=== PATIENT | female | born 1955 | race Caucasian/White ===

== ENCOUNTER 2020-10-07 10:45 | Outpatient (REF) | payer MEDICAID, SELFPAY ==
--- NOTE | ~2020-10-07 | MM_ITS ---
EXAMINATION: MM SCREENING DIGITAL BREAST TOMOSYNTHESIS, BILATERAL CLINICAL INFORMATION: Screening. Asymptomatic. The lifetime risk of breast cancer based on the Tyrer-Cuzick Model is 5%. COMPARISON: Mammography: 10/02/2019, 09/26/2018, 08/30/2017 TECHNIQUE: Digital breast tomosynthesis is performed in both the craniocaudal and mediolateral oblique views along with computer-aided detection (CAD). Synthesized 2D images are generated from the tomosynthesis. FINDINGS: There are scattered areas of fibroglandular density (ACR BI-RADS breast composition Category b). There are no significant masses, abnormal calcifications, or other abnormalities. No significant changes from prior studies. MM/MM tomosynthesis screening BI IMPRESSION: No mammographic evidence of malignancy. ASSESSMENT: BI-RADS 1: Negative RECOMMENDATION: Routine annual mammography screening. This patient's information was entered into a reminder system with a target due date for their next mammogram.
== END 2020-10-07 10:46 | disposition home or self-care (01) ==
LOC: HO.MAMMO 10:45
PROVIDERS: PCP Internal Medicine; Visit Provider Internal Medicine
DX: Z12.31 Encounter for screening mammogram for malignant neoplasm of breast (principal)
CPT/HCPCS: 77063; 77067

== ENCOUNTER 2021-10-20 08:55 | Outpatient (REF) | payer MEDICAID, SELFPAY ==
--- NOTE | ~2021-10-20 | MM_ITS ---
EXAMINATION: MM SCREENING DIGITAL BREAST TOMOSYNTHESIS, BILATERAL CLINICAL INFORMATION: Screening. Asymptomatic. The lifetime risk of breast cancer based on the Tyrer-Cuzick Model is 5%. COMPARISON: Mammography: 10/07/2020, 10/02/2019, 09/26/2018 TECHNIQUE: Digital breast tomosynthesis is performed in both the craniocaudal and mediolateral oblique views along with computer-aided detection (CAD). Synthesized 2D images are generated from the tomosynthesis. FINDINGS: There are scattered areas of fibroglandular density (ACR BI-RADS breast composition Category b). There are no significant masses, abnormal calcifications, or other abnormalities. Parenchymal pattern is similar to prior studies. There are no significant changes. MM/MM tomosynthesis screening BI IMPRESSION: No mammographic evidence of malignancy. ASSESSMENT: BI-RADS 1: Negative RECOMMENDATION: Routine annual mammography screening. This patient's information was entered into a reminder system with a target due date for their next mammogram.
== END 2021-10-20 08:56 | disposition home or self-care (01) ==
LOC: HO.MAMMO 08:55
PROVIDERS: PCP Internal Medicine; Visit Provider Internal Medicine
DX: Z12.31 Encounter for screening mammogram for malignant neoplasm of breast (principal)
CPT/HCPCS: 77063; 77067

== ENCOUNTER 2022-01-26 09:26 | Outpatient (REF) | payer MEDICAID, SELFPAY ==
--- NOTE | ~2022-01-26 | XR_ITS ---
EXAMINATION: XR HIP, RIGHT CLINICAL INFORMATION: Pain COMPARISON: None TECHNIQUE: Two views of the right hip. FINDINGS: Bones and soft tissues are normal. No fracture. Alignment is anatomic. Hip joint space is maintained. XR/XR hip RT min 2V IMPRESSION: Normal right hip.
--- NOTE | ~2022-01-26 | XR_ITS ---
EXAMINATION: XR LUMBOSACRAL SPINE CLINICAL INFORMATION: Low back pain COMPARISON: Previous CT of the abdomen and pelvis June 2014 TECHNIQUE: Three views of the lumbosacral spine. FINDINGS: There may be a transitional vertebral body segment or sacralization of L5. Bone alignment is normal. No fracture or dislocation is seen. Disc spaces are normal. There are calcifications projecting over the left kidney. Previous CT shows left nephrectomy and left-sided abdominal calcifications are new. XR/XR lumbar spine 2-3V IMPRESSION: Probable transitional vertebral body segment or sacralization of L5. Otherwise unremarkable exam. Soft tissue calcifications projecting over the left renal fossa. Patient is post left nephrectomy. Calcifications appear new from June 2014 CT of the abdomen and pelvis..
== END 2022-01-26 09:27 | disposition home or self-care (01) ==
LOC: HO.XRAY 09:26
PROVIDERS: PCP Internal Medicine; Visit Provider Internal Medicine
DX: M25.551 Pain in right hip (principal); M54.41 Lumbago with sciatica, right side
CPT/HCPCS: 72100; 73502

== ENCOUNTER 2022-11-02 13:27 | Outpatient (REF) | payer MEDICAID, SELFPAY ==
--- NOTE | ~2022-11-02 | MM_ITS ---
EXAMINATION: MM SCREENING DIGITAL BREAST TOMOSYNTHESIS, BILATERAL CLINICAL INFORMATION: Screening. Asymptomatic. The lifetime risk of breast cancer based on the Tyrer-Cuzick Model is 5%. COMPARISON: Mammography: 10/20/2021, 10/07/2020, 10/02/2019, 09/26/2018 TECHNIQUE: Digital breast tomosynthesis is performed in both the craniocaudal and mediolateral oblique views along with computer-aided detection (CAD). Synthesized 2D images are generated from the tomosynthesis. FINDINGS: There are scattered areas of fibroglandular density (ACR BI-RADS breast composition Category b). There are no significant masses, abnormal calcifications, or other abnormalities. No architectural abnormality or developing density or significant change from prior studies. MM/MM tomosynthesis screening BI IMPRESSION: No significant changes from prior studies. ASSESSMENT: BI-RADS 1: Negative RECOMMENDATION: Routine annual mammography screening. This patient's information was entered into a reminder system with a target due date for their next mammogram.
== END 2022-11-02 13:28 | disposition home or self-care (01) ==
LOC: HO.MAMMO 13:27
PROVIDERS: PCP Internal Medicine; Visit Provider Internal Medicine
DX: Z12.31 Encounter for screening mammogram for malignant neoplasm of breast (principal)
CPT/HCPCS: 77063; 77067

== ENCOUNTER 2023-06-28 08:05 | Outpatient (REF) | payer MEDICAID, SELFPAY ==
[2023-06-28 14:38] LABS: Anion Gap 12 (12-20); Blood Urea Nitrogen 20 mg/dL (9-16); Calcium 9.1 mg/dL (8.4-10.2); Carbon Dioxide 27 mmol/L (22-29); Chloride 103 mmol/L (96-108); Estimated Glomerular Filt Rate > 60; Glucose Fasting 88 mg/dL (60-99); Potassium 4.1 mmol/L (3.3-5.1); Sodium 138 mmol/L (135-145)
== END 2023-06-28 08:06 | disposition home or self-care (01) ==
LOC: HO.CHCLDS 08:05
PROVIDERS: Visit Provider Internal Medicine
DX: I10 Essential (primary) hypertension (principal)
CPT/HCPCS: 36415; 80048

== ENCOUNTER 2024-01-06 12:14 | Outpatient (REF) | payer MEDICAID, SELFPAY ==
[2024-01-06 14:40] LABS: Anion Gap 15 (12-20); Blood Urea Nitrogen 16 mg/dL (9-16); Calcium 9.6 mg/dL (8.4-10.2); Carbon Dioxide 28 mmol/L (22-29); Chloride 103 mmol/L (96-108); Estimated Glomerular Filt Rate > 60; Glucose Random 87 mg/dL (60-115); Potassium 3.6 mmol/L (3.3-5.1); Sodium 142 mmol/L (135-145)
== END 2024-01-06 12:15 | disposition home or self-care (01) ==
LOC: HO.CHCLDS 12:14
PROVIDERS: Visit Provider Internal Medicine
DX: I10 Essential (primary) hypertension (principal)
CPT/HCPCS: 36415; 80048

== ENCOUNTER 2025-04-25 11:22 | Outpatient (REF) | payer MEDICAID, SELFPAY ==
--- OUTSIDE RECORDS SUMMARY | 2025-04-25 10:00 | XMS_ITS | Encounter Summary ---
Author Organization [employer] Address [address] [place] [id number] Care Team Providers Care Car Coupler Name Role Phone Saroj Hodgson MD Primary Care Provider [phone] Reason for Referral * Imaging (Routine) - Authorized Specialty Diagnoses / Procedures Referred By Contac t Referred To Contact Radiology Diagnoses Encounter for screening mammogram for malignant neoplasm of breast Procedures BI Mammogram Screening Tomosynthesis Bilateral Saroj Hodgson MD [address] [place] [address] Phone: tel: fax: [address] Phone: tel: fax: Referral ID Status Reason Start Date Expiration Date V isits Requested Visits Authorized [id number] Authorized 04/25/2025 04/25/2026 1 1 Reason for Visit * Reason Comments Extended office visit Encounter Details Date Type Department Care Team (Latest Contact Info) Description 04/25/2025 10:00 AM EDT Office Visit [facility] [address] [place] [address] Saroj Hodgson MD [address] [place] [address] Class 1 obesity due to excess calories with serious comorbidity and body mass index (BMI) of 33.0 to 33.9 in adult (Primary Dx); Primary hypertension; Primary osteoarthritis of right knee; Moderate asthma without complication, unspecified whether persistent; Other fatigue; Expiratory wheezing; Encounter for screening mammogram for malignant neoplasm of breast; Fibromyalgia; Acute pain of left shoulder; Acute pain of right shoulder; Dietary counseling; Exercise counseling; Encounter for immunization Social History Tobacco Use Types Packs/Day Years Used Date Smoking Tobacco: Never Passive Smoke Exposure: Never Smokeless Tobacco: Never Depression Answer Date Recorded Patient Health Questionnaire-9 Score 4 04/25/2025 Patient Health Questionnaire-9 Score 4 04/25/2025 Last PHQ-9: Questionnaire Data Not on file 0 04/25/2025 Housing Stability Answer Date Recorded What is your housing situation today? I have nicho davidson 04/25/[address] you li ve. Do you have problems with any of the following? None of the above 04/25/2025 Food Insecurity Answer Date Recorded Within the past 12 months, y ou worried that your food would run out before you got money to buy more: Never True 04/25/2025 Within the past 12 months,th e food you bought just didn't last and you didn't have enough money to get more: Never True 05/2025 Transportation Answer Date Recorded In the past 12 months, has l ack of transportation kept you from medical appts, meetings, work or from getting things needed for daily living? No 04/25/2025 Utilities Answer Date Recorded In the past 12 months, has t he electric, gas, oil or water company threatened to shut off services in your home? No 04/25/2025 Depression Answer Date Recorded Patient Health Questionnaire-2 Score 0 04/25/2025 Internet Access Answer Date Recorded Internet Access Q1 Yes 04/25/2025 Internet Access Q2 Not on file 04/25/2025 Comments Unknown Sex and Gender Information Value Date Recorded Sex Assigned at Female 06/15/2022 10:22 AM EDT Legal Sex Female 10:22 AM EDT Gender Identity Female 06/15/2022 10:22 AM EDT Sexual Orientation Straight 06/15/2022 10 :22 AM EDT documented as of this encounter Last Filed Vital Signs Vital Sign Reading Time Taken Comments Blood Pressure 157/86 04/25/2025 9:56 AM EDT Pulse 70 04/25/2025 9:56 AM EDT Temperature 36.8 C (98.3 F) 04/25/2025 9:56 AM EDT Respiratory Rate 20 04/25/2025 9:56 AM EDT Oxygen Saturation 97% 04/25/2025 9:56 AM EDT Inhaled Oxygen Concentration - - Weight 82.1 kg (181 lb) 04/25/2025 9:56 AM EDT Height 157.5 cm (5' 2 ) 04/25/2025 9:56 AM EDT Body Mass Index 33.11 04/25/2025 9:56 AM EDT documented in this encounter Functional Status * Over the past 2 weeks, how often have you been bothered by any of the following problems? Question Answer Date of Assessment Author Patient Health Questionnaire-2 Score 0 04/16 9:58 AM EDT Anay Ray MA * Little interest or pleasure in doing things Answer Date of Assessment Author Not at all 04/25/2025 9:58 AM EDT Bret Ray MA * Feeling down, depressed, or hopeless Answer Date of Assessment Author Not at all 04/25/2025 9:58 AM EDT Bret Ray MA * Trouble falling or staying asleep, or sleeping too much Answer Date of Assessment Author Several days 04/25/2025 9:58 AM Bret Adair MA * Feeling tired or having little energy Answer Date of Assessment Author Nearly every day 04/25/2025 9:58 AM EDT Ramesh Ray MA * Poor appetite or overeating Answer Date of Assessment Author Not at all 04/25/2025 9:58 AM EDT Bret Ray MA * Feeling bad about yourself - or that you are a failure or have let yourself or your family down Answer Date of Assessment Author Not at all 04/25/2025 9:58 AM Bret Adair MA * Trouble concentrating on things, such as reading the newspaper or watching television Answer Date of Assessment Author Not at all 04/25/2025 9:58 AM KERENT Bret Ray MA * Moving or speaking so slowly that other people could have noticed? Or the opposite - being so fidgety or restless that you have been moving around a lot more than usual. Answer Date of Assessment Author Not at all 04/25/2025 9:58 AM EDT Bret Ray MA * Thoughts that you would be better off or hurting yourself in some way Answer Date of Assessment Author Not at all 04/25/2025 9:58 AM EDT Bret Ray MA * Patient Health Questionnaire-9 Score Answer Date of Assessment Author 4 04/25/2025 9:58 AM EDT Bret Ray MA * How difficult have these problems made it for you to do your work, take care of things at home, or get along with other people? Answer Date of Assessment Author Not difficult at all 04/25/2025 9:58 AM EDT Anay Garvin MA documented as of this encounter Progress Notes * Saroj Hodgson MD - 04/25/2025 10:00 AM EDT SUBJECTIVE Danielle Kilpatrick is a 69 y.o. female who presents for Extended office visit. HPI 1) h/o Generalized body aches. On Duloxetine 30 mg bid which provides minimal relief. 2)h/o HTN. Pt did not take her BP medication today because she thought she was going to get blood work. 3) H/o OA. Pt is c/o worsening b/l shoulder and knee pain. The left shoulder is more painful than the right. 4) pt has custody of 2 new grand children ( 5 years old and 7 years old) Problem List[1] Allergies[2] Medications Ordered Prior to Encounter[3] Review of Systems Constitutional: Positive for fatigue. Negative for activity change, appetite change, chills, diaphoresis, fever and unexpected weight change. Eyes: Negative for photophobia, pain and redness. Respiratory: Negative for cough, choking and shortness of breath. Cardiovascular: Negative for leg swelling. Gastrointestinal: Negative for abdominal pain and anal bleeding. Genitourinary: Negative for dyspareunia, dysuria, enuresis, flank pain, frequency, genital sores, hematuria, pelvic pain and urgency. Musculoskeletal: Positive for arthralgias and myalgias. Psychiatric/Behavioral: Negative for behavioral problems, confusion and decreased concentration. OBJECTIVE Vitals: 04/25/25 0956 BP: (!) 157/86 BP Location: Left arm Patient Position: Sitting BP Cuff Size: Adult Pulse: 70 Resp: 20 Temp: 98.3 ??F (36.8 ??C) TempSrc: Oral SpO2: 97% Weight: 181 lb (82.1 kg) Height: 5' 2 (1.575 m) Physical Exam Constitutional: General: She is not in acute distress. Appearance: Normal appearance. She is not ill-appearing, toxic-appearing or diaphoretic. Cardiovascular: Rate and Rhythm: Normal rate. Pulses: Normal pulses. Pulmonary: Effort: Pulmonary effort is normal. Skin: General: Skin is warm. Neurological: General: No focal deficit present. Mental Status: She is alert. Psychiatric: Mood and Affect: Mood normal. Assessment/Plan Assessment/Plan Diagnoses and all orders for this visit: Class 1 obesity due to excess calories with serious comorbidity and body mass index (BMI) of 33.0 to 33.9 in adult Dietary Recommendations: Fruits, vegetables, whole grains, protein foods, and fat-free or low-fat dairy products are healthychoices. Eat different types of protein foods in your diet. This can include seafood, lean meats, poultry, beans, peas, lentils, nuts, seeds, soy products, and eggs. Limit foods and beverages higher in added sugars, saturated fat, and sodium. Exercise Recommendations: At least 150 minutes of moderate-intensity physical activity per week, or an equivalent combinationof moderate- and vigorous-intensity activity Primary hypertension Comments: BP is elevated today Pt did not take her BP meds today. DASH diet Orders: - CBC auto differential; Future - Comprehensive Metabolic Panel; Future - Lipid Panel, Standard; Future - TSH with Reflex to Free T4; Future - Magnesium; Future - Vitamin B12/Folate, Serum Panel; Future Primary osteoarthritis of right knee Comments: tramadol as directed Ortho follow up Orders: - traMADol (Ultram) 50 MG tablet; Take 1 tablet (50 mg) by mouth every 8 (eight) hours if needed for severe pain for up to 7 days. Moderate asthma without complication, unspecified whether persistent - budesonide-formoterol (Symbicort) 80-4.5 MCG/ACT inhaler; Inhale 2 puffs in the morning and at bedtime. Rinse mouth with water after use to reduce aftertaste and incidence of candidiasis. Do not swallow. - albuterol 108 (90 Base) MCG/ACT inhaler; Inhale 2 puffs every 4 (four) hours if needed for shortness of breath or wheezing. Other fatigue Comments: Possibly due to pt's new duties at home w/ her 2 gran children. Labs ordered. Pt will be called w/ results. Orders: - CBC auto differential; Future - Comprehensive Metabolic Panel; Future - Lipid Panel, Standard; Future - TSH with Reflex to Free T4; Future - Magnesium; Future - Vitamin B12/Folate, Serum Panel; Future Expiratory wheezing Comments: No wheezing today No change in management. Pt feels stable. Denies SOB. Orders: - budesonide-formoterol (Symbicort) 80-4.5 MCG/ACT inhaler; Inhale 2 puffs in the morning and at bedtime. Rinse mouth with water after use to reduce aftertaste and incidence of candidiasis. Do not swallow. Encounter for screening mammogram for malignant neoplasm of breast - BI Mammogram Screening Tomosynthesis Bilateral; Future Fibromyalgia Comments: dose of Cymbalta increased to 90 mg the medication will be titrated up to 120 mg in the next 4 to 6 weeks if no improvement. Orders: - DULoxetine (Cymbalta) [address] capsule; 30 mg in the morning, 60 mg in the evening - traMADol (Ultram) 50 MG tablet; Take 1 tablet (50 mg) by mouth every 8 (eight) hours if needed for severe pain for up to 7 days. Acute pain of left shoulder - XR Shoulder 2+ Views Left; Future - traMADol (Ultram) 50 MG tablet; Take 1 tablet (50 mg) by mouth every 8 (eight) hours if needed for severe pain for up to 7 days. Acute pain of right shoulder - XR Shoulder 2+ Views Right; Future - traMADol (Ultram) 50 MG tablet; Take 1 tablet (50 mg) by mouth every 8 (eight) hours if needed for severe pain for up to 7 days. Dietary counseling Exercise counseling Encounter for immunization - PCV-20 VACCINE 6 wks + - HEPATITIS B VACCINE ADULT 20 yrs + [1] Patient Active Problem List Diagnosis Hypertensive disorder Osteoarthritis Moderate asthma without complication Viral URI [2] Allergies Allergen Reactions Amlodipine Other reaction(s): Not Indicated Lisinopril Cough Other reaction(s): Not Indicated [3] Current Outpatient Medications on File Prior to Visit Medication Sig Dispense Refill Blood Pressure kit Take by on arm route as directed cholecalciferol (Vitamin D-3) 50 MCG (2000 UT) capsule Take tablet 1 by oral route once daily. DULoxetine (Cymbalta) [address] capsule START TAKING 1 CAPSULE BY MOUTH ONCE A DAY AND INCREASE THE DOSE TO 1 CAPSULE TWICE A DAY AFTER 1 WEEK IF NO SIDE EFFECT 60 capsule 0 DULoxetine (Cymbalta) [address] capsule TAKE 1 CAPSULE BY MOUTH TWICE DAILY. DO NOT CRUSH OR CHEW. 60 capsule 0 EQ Acetaminophen 500 MG tablet TAKE 2 TABLETS BY MOUTH EVERY 8 HOURS IF NEEDED FOR MODERATE PAIN ORHEADACHES 60 tablet 0 hydroCHLOROthiazide (Microzide) 12.5 MG capsule Take 1 capsule by mouth once daily 90 capsule 0 losartan-hydroCHLOROthiazide (Hyzaar) 100-25 MG tablet TAKE 1 TABLET BY MOUTH EVERY DAY 30 tablet 11 sennosides (Senokot) 8.6 MG tablet take 1 Tablet by G-tube route every day as needed for constipation [DISCONTINUED] albuterol 108 (90 Base) MCG/ACT inhaler Inhale 2 puffs every 4 (four) hours if needed for shortness of breath or wheezing. 18 g 1 [DISCONTINUED] budesonide-formoterol (Symbicort) 80-4.5 MCG/ACT inhaler Inhale 2 puffs in the morning and at bedtime. Rinse mouth with water after use to reduce aftertaste and incidence of candidiasis. Do not swallow. 1 each 11 [DISCONTINUED] fluticasone (Flovent) 110 MCG/ACT inhaler Inhale 1 puff 2 times daily. Rinse mouth with water after use to reduce aftertaste and incidence of candidiasis. Do not swallow. 12 g 3 Current Facility-Administered Medications on File Prior to Visit Medication Dose Route Frequency Provider Last Rate Last Admin [DISCONTINUED] erythromycin (Romycin) 5 MG/GM ophthalmic ointment Left Eye q6h DAMIR Saroj Hodgson MD [DISCONTINUED] predniSONE (Deltasone) tablet 50 mg 50 mg Oral Daily Saroj Hodgson MD 50 mg at 05/06/23 1030 documented in this encounter Plan of Treatment Upcoming Encounters Date Type Department Care Team (Late st Contact Info) Description 05/25/2025 10:30 AM EDT Clinical Support [facility] [address] [place] [address] 06/11/2025 10:45 AM EDT Office Visit [facility] [address] [place] [address] Saroj Hodgson MD [address] [place] [address] Scheduled Orders Name Type Priority Associated Diagnoses Orde r Schedule CBC auto differential Lab Routine Primary hypertension Other fatigue Expected: 04/25/2025 (Approximate), Expires: 04/25/2026 Comprehensive Metabolic Panel Lab Routine Primary hypertension Other fatigue Expected: 04/25/2025 (Approximate), Expires: 04/25/2026 Lipid Panel, Standard Lab Routine Primary hypertension Other fatigue Expected: 04/25/2025 (Approximate), Expires: 04/25/2026 TSH with Reflex to Free T4 Lab Routine Primary hypertension Other fatigue Expected: 04/25/2025 (Approximate), Expires: 04/25/2026 Magnesium Lab Routine Primary hypertension Other fatigue Expected: 04/25/2025, Expires: 04/25/2026 Vitamin B12/Folate, Serum Panel Lab Routine Primary hypertension Other fatigue Expected: 04/25/2025, Expires: 04/25/2026 BI Mammogram Screening Tomosynthesis Bilateral Imaging Routine Encounter for screening mammogram for malignant neoplasm of breast Expected: 04/25/2025, Expires: 06/25/2026 XR Shoulder 2+ Views Left Imaging Routine Acute pain of left shoulder Expected: 04/25/2025, Expires: 04/25/2026 XR Shoulder 2+ Views Right Imaging Routine Acute pain of right shoulder Expected: 04/25/2025, Expires: 04/25/2026 documented as of this encounter Visit Diagnoses Diagnosis Class 1 obesity due to excess calories with serious comorbidity and body mass index (BMI) of 33.0 to 33.9 in adult- Primary Primary hypertension Unspecified essential hypertension Primary osteoarthritis of right knee Moderate asthma without complication, unspecified whether persistent Other fatigue Expiratory wheezing Encounter for screening mammogram for malignant neoplasm of breast Fibromyalgia Unspecified myalgia and myositis Acute pain of left shoulder Acute pain of right shoulder Dietary counseling Dietary surveillance and counseling Exercise counseling Encounter for immunization documented in this encounter Additional Health Concerns Assessment Noted Time PHQ-9 Depression Total Score: 4 04/25/20 25 9:58 AM EDT documented as of this encounter Care Teams Car Coupler Relationship Specialty Start Date End Date Saroj Hodgson MD [address] [place] [address] PCP - General Internal Medicine 06/15/12 documented as of this encounter
[2025-04-25 14:28] LABS: MANUAL DIFF FLAG NO
--- OUTSIDE RECORDS SUMMARY | 2025-04-25 14:29 | XMS_ITS | Encounter Summary ---
Author Organization [employer] Address [address] [facility] [address] [place] [address] Care Team Providers Care Geriatric Care Manager Name Role Phone Saroj Hodgson MD Primary Care Provider [phone]- [phone] Reason for Visit * Reason Onset Date Comments chart prep 04/24/2025 Encounter Details Date Type Department Care Team ([facility] Contact Info) Description 04/24/2025 Telephone [facility] [address] [place] [address] Saroj Hodgson MD [address] [place] [address] chart prep Social History Tobacco Use Types Packs/Day Years [...] AM EDT documented as of this encounter Miscellaneous Notes * Telephone Encounter - Shantelle Puentes MA - 04/24/2025 12:34 PM EDT Chart Prep Labs: done Images: not done Referrals: not applicable Vaccines due: Covid, PCV20, Tdap, Hep B, and RSV Screenings: colonoscopy and mammogram Overdue care gaps: SBIRT, SDOH, and PHQ-9 documented in this encounter Plan of Treatment Upcoming Encounters Date Type Department Care Team ([facility] st Contact Info) Description 05/25/2025 10:30 AM EDT Clinical Support [facility] MED [facility] PEDS [address] [place] [address] 06/11/2025 10:45 AM EDT Office Visit [facility] MED [facility] PEDS [address] [place] [address] Saroj Hodgson MD [address] [place] [address] documented as of this encounter Visit Diagnoses Not on filedocumented in this encounter Additional Health Concerns Assessment Noted Time PHQ-9 Depression Total Score: 1 08/11/20 10:07 AM EST documented as of this encounter Care Teams Geriatric Care Manager Relationship Specialty Start Date End Date Saroj Hodgson MD [address] [place] [id number] PCP - General Internal Medicine 06/15/12 documented as of this encounter
--- OUTSIDE RECORDS SUMMARY | 2025-04-25 14:30 | XMS_ITS | Clinical Summary ---
Author Organization [employer] Address [address] [place] [address] 7 [place] [address] Care Team Providers Care Editor Managing Newspaper Name Role Phone Saroj Hodgson MD Primary Care Provider [phone] Allergies Active Allergy Reactions Criticality Noted Date Comments Amlodipine 05/03/2023 Other reaction(s): Not Indicated Lisinopril Cough 04/13/2013 Other reaction(s): Not Indicated Medications cholecalciferol (Vitamin D-3) 50 MCG (1999) capsule Take tablet 1 by oral route once daily. 021 Active sennosides (Senokot) 8.6 MG tablet take 1 Tablet by G-tube route every day as needed for constipation 022 Active Blood Pressure kit Take by on arm route as directed Active DULoxetine (Cymbalta) [address] capsule START TAKING 1 CAPSULE BY MOUTH ONCE A DAY AND INCREASE THE DOSE TO 1 CAPSULE TWICE A DAY AFTER 1 WEEK IF NO SIDE EFFECT 60 capsule 023 Active EQ Acetaminophen 500 MG tabletIndications :Influenza A TAKE 2 TABLETS BY MOUTH EVERY 8 HOURS IF NEEDED FOR MODERATE PAIN OR HEADACHES 60 tablet 023 Active hydroCHLOROthiazi de (Microzide) 12.5 MG capsule Take 1 capsule by mouth once daily 90 capsule 024 Active losartan-hydroCHL OROthiazide (Hyzaar) 100-25 MG tabletIndications :Primary hypertension TAKE 1 TABLET BY MOUTH EVERY DAY 30 tablet 11 025 Active DULoxetine (Cymbalta) [address] capsule TAKE 1 CAPSULE BY MOUTH TWICE DAILY. DO NOT CRUSH OR CHEW. 60 capsule Active budesonide-formot dunia (Symbicort) 80-4.5 MCG/ACT inhalerIndication s:Moderate asthma without complication, unspecified whether persistent,Expira tory wheezing Inhale 2 puffs in the morning and at bedtime. Rinse mouth with water after use to reduce aftertaste and incidence of candidiasis. Do not swallow. 1 each 11 025 2025 Active albuterol 108 (90 Base) MCG/ACT inhalerIndication s:Moderate asthma without complication, unspecified whether persistent Inhale 2 puffs every 4 (four) hours if needed for shortness of breath or wheezing. 18 g 1 025 2024 Active DULoxetine (Cymbalta) [address] capsuleIndication s:Fibromyalgia 30 mg in the morning, 60 mg in the evening 90 capsule Active traMADol (Ultram) 50 MG tabletIndications :Primary osteoarthritis of right knee,Fibromyalgia ,Acute pain of left shoulder,Acute pain of right shoulder Take 1 tablet (50 mg) by mouth every 8 (eight) hours if needed for severe pain for up to 7 days. 20 tablet 025 2024 Active fluticasone (Flovent) 110 MCG/ACT inhalerIndication s:Moderate asthma without complication, unspecified whether persistent Inhale 1 puff 2 times daily. Rinse mouth with water after use to reduce aftertaste and incidence of candidiasis. Do not swallow. 12 g 3 023 2024 Discontinued albuterol 108 (90 Base) MCG/ACT inhalerIndication s:Moderate asthma without complication, unspecified whether persistent Inhale 2 puffs every 4 (four) hours if needed for shortness of breath or wheezing. 18 g 1 023 2024 Discontinued(R eorder (will not trigger notification to Pharmacy)) budesonide-formot dunia (Symbicort) 80-4.5 MCG/ACT inhalerIndication s:Expiratory wheezing Inhale 2 puffs in the morning and at bedtime. Rinse mouth with water after use to reduce aftertaste and incidence of candidiasis. Do not swallow. 1 each 023 2024 Discontinued(R eorder (will not trigger notification to Pharmacy)) DULoxetine (Cymbalta) [address] capsule TAKE 1 CAPSULE BY MOUTH TWICE DAILY. DO NOT CRUSH OR CHEW 60 capsule 025 2024 Discontinued Hospital, Clinic, or Other Facility Administered Medication Ordered Dose Route Frequency Start Date End Date Status erythromycin (Romycin) 5 MG/GM ophthalmic ointmentIndications :Bacterial conjunctivitis LEFT EYE Every 6 hours scheduled 08/11/2022 04/25/20 25 Discontinued predniSONE (Deltasone) tablet 50 mgIndications:Expir atory wheezing 50 mg PO Daily 05/06/2023 04/25/20 25 Discontinued Active Problems Problem Noted Date Diagnosed Date Moderate asthma without complication 05/03/2023 Assessment & Plan (05/03/2023 12:28 PM EDT): It seems to have been triggered by last years' viral URI Start Flovent 110 mg bid + Albuterol prn FU w PCP ,may need PFTs later. She's ex-smoker for more than 10y. Counseled to have Influenza and Covid vax booster this fall. Out of work today. Viral URI 05/03/2023 Osteoarthritis 02/13/2021 Hypertensive disorder 02/26/2015 Assessment & Plan (05/03/2023 12:29 PM EDT): She's off atenolol for few weeks. Continue hydrochlorothiazide and fu w PCP in 3-4w Reconsult Prn if BP > 160/95. Counseled re low salt diet/increase moderate physical activity. Check home BP BIW and prn CP/MOSER/WILBURN Encounters Date Type Department Care Team Description 04/25/2025 10:00 AM EDT Office Visit [facility] [address] [place] [address] Saroj Hodgson MD Class 1 obesity due to excess calories [...] Dietary counseling; Exercise counseling; Encounter for immunization 04/25/2025 Travel 04/24/2025 Travel 04/24/2025 Telephone [facility] [address] [place] [address] Saroj Hodgson MD chart prep 04/18/2025 Patient Outreach [facility] [address] [place], [place] [id number] Saroj Hodgson MD Pre-visit Planning (Pre visit planning LVM ) 03/29/2025 Refill [facility] [address] [place] [address] Tonia Hernandez MD 03/05/2025 Refill [facility] [address] [place] [address] Saroj Hodgson MD Primary hypertension 02/25/2025 Refill [facility] [address] [place] [address] Saroj Hodgson MD 02/22/2025 Telephone [facility] [address] [place] [address] Saroj Hodgson MD Triage from Last 3 Months Immunizations Immunization Administration Dates Next Due Hep B, adult 04/25/2025,12/12/2008 Influenza Injectable Quadriv alant Preservative Free IIV4 MDCK 05/27/2022,06/21/2017 Influenza injectable quadriv alent IIV4 with preservative 04/28/2018 Influenza injectable quadriv alent preservative free 05/12/2021,06/11/2020,06/16/2019,2015,08/23/2015 Influenza, High Dose Seasona l, Preservative Free 07/04/2024,06/08/2017 Pneumococcal Conjugate PCV 20 04/25/2025 Tdap 02/26/2015 Zoster, Recombinant 10/05/2022,06/30/2022 Social History Tobacco Use Types Packs/Day Years Used Date Smoking Tobacco: Never Passive Smoke Exposure: Never Smokeless Tobacco: Never Tobacco Cessation:Counseling Given: Not Answered Depression Answer Date Recorded Patient Health Questionnaire-9 [...] Orientation Straight 06/15/2022 10 :22 AM EDT Last Filed Vital Signs Vital Sign Reading [...] Mass Index 33.11 04/25/2025 9:56 AM EDT Plan of Treatment Upcoming Encounters Date Type Department Care Team (Late st Contact Info) Description 05/25/2025 10:30 AM EDT Clinical Support [facility] [address] [place] [address] 06/11/2025 10:45 AM EDT Office Visit [facility] [address] [place] [address] Saroj Hodgson MD [address] [place] [address] Health Maintenance Due Date Last Done Comments CT Colonography 1957 Colonoscopy 1957 Colorectal Cancer Screening 1955 FIT DNA/Cologuard 1957 FIT 1957 FOBT 1957 Sigmoidoscopy 1957 Hepatitis C Screening 12/29/1975 RSV Patients and Patients Aged 60 years or older (1 - Risk 60-74 years 1-dose series) 2017 Mammogram 11/02/2024 11/02/2022, 03/02/2022, 10/20/2021, Additional history exists DTaP/Tdap/Td Vaccines (2 - Td or Tdap) 02/26/2025 02/26/2015 COVID-19 Vaccine ( season) 2025 07/04/2024, 07/03/2021, 10/04/2020, Additional history exists Influenza Vaccine (#1) 2025 , 05/27/2022, 05/12/2021, Additional history exists Hepatitis B Vaccines (3 of 3 - 19+ 3-dose series) 06/20/2025 04/25/2025, 12/12/2008 Lipid Panel 07/16/2025 07/16/2020 Alcohol/Substance Use Screening 04/25/2026 04/25/2025 Depression Screening 04/25/2026 04/25/2025, 04/25/20 25 SDOH Screening 04/25/2026 04/25/2025 Tobacco Screening 04/25/2026 04/25/2025 Cervical Cancer Screening Discontinued HPV/Cotest Discontinued 04/15/2021 Pap Smear Discontinued 04/15/2021 Zoster Vaccines Completed 10/05/2022, 06/30/2022 Pneumococcal Vaccine: 50+ Years Completed 04/25/2025 HIB Vaccines Aged Out No longer eligi ble based on patient's age to complete this topic HPV Vaccines Aged Out No longer eligi ble based on patient's age to complete this topic Hepatitis A Vaccines Aged Out No long er eligible based on patient's age to complete this topic IPV Vaccines Aged Out No longer eligi ble based on patient's age to complete this topic Meningococcal B Vaccine Aged Out No l onger eligible based on patient's age to complete this topic Meningococcal Vaccine Aged Out No azalea marvel eligible based on patient's age to complete this topic RSV under 20 months Aged Out No longe r eligible based on patient's age to complete this topic Rotavirus Vaccines Aged Out No longer eligible based on patient's age to complete this topic Procedures Procedure Name Priority Date/Time Associated Diagnosis Comments BI MAMMOGRAM SCREENING TOMOSYNTHESIS BILATERAL Routine 11/02/2022 1:50 PM EDT HPV MRNA E6/E7 Routine 04/15/2021 9:30 AM EDT THINPREP PAP Routine 04/15/2021 9:30 AM EDT LIPID PANEL, STANDARD Routine 07/16/2020 9:20 AM EST from Last 3 Months or Most Recently Relevant to Health Maintenance Results * BI Mammogram Screening Tomosynthesis Bilateral (11/02/2022 1:50 PM EDT) Anatomical Region Laterality Modality Breast Bilateral Mammography 11/02/2022 1:50 PM EDT Narrative 11/04/2022 1:26 PM EDT [facility] [address] [place] [address] [place] [address] Mammography Report Signed Patient: Danielle Kilpatrick MR#: [id number] 8 : 1955 Acct:[id number] Age/Sex: 66 / F ADM Date: 11/02/22 Loc: MAMMO Attending Dr: Saroj Hodgson MD Ordering Physician: Saroj Hodgson MD Results: 1 Negative Date of Service: 11/02/22 Follow Up: 1 Year From Orig ina Mammogram Procedure(s): MM tomosynthesis screening BI Accession Number(s): [id number] cc: Saroj Hodgson MD EXAMINATION: MM SCREENING DIGITAL BREAST TOMOSYNTHESIS, BILATERAL CLINICAL INFORMATION: Screening. Asymptomatic. The lifetime risk of breast cancer based on the Tyrer-Cuzick Model is 5%. COMPARISON: Mammography: 10/20/2021, 10/07/2020, 10/02/2019, 09/26/2018 TECHNIQUE: Digital breast tomosynthesis is performed in both the craniocaudal and mediolateral oblique views along with computer-aided detection (CAD). Synthesized 2D images are generated from the tomosynthesis. FINDINGS: There are scattered areas of fibroglandular density (ACR BI-RADS breast composition Category b). There are no significant masses, abnormal calcifications, or other abnormalities. No architectural abnormality or developing density or significant change from prior studies. MM/MM tomosynthesis screening BI IMPRESSION: No significant changes from prior studies. ASSESSMENT: BI-RADS 1: Negative RECOMMENDATION: Routine annual mammography screening. This patient's information was entered into a reminder system with a target due date for their next mammogram. Dictated By: Jimmy Aguilar MD Signed By: <Electronically signed by Jimmy Aguilar MD in OV> 11/04/22 1323 DD/ 1350 TD/TT: Front Office Specialist: MOORE Procedure Note Donotuseinterpreter, Image - [facility] [address] [place] [address] Mammography Report Signed Patient: Danielle Kilpatrick#: [id number] 8 : 8Acct:[id number] Age/Sex: 66 / FADM Date: 11/02/22 Loc: MAMMO Attending Dr: Saroj Hodgson MD Ordering Physician: Saroj Hodgson MDResults: 1 Negative Date of Service: 11/02/22Follow Up: 1 Year From Orig inal Mammogram Procedure(s): MM tomosynthesis screening BI Accession Number(s): [id number] cc: Saroj Hodgson MD EXAMINATION: MM SCREENING DIGITAL BREAST TOMOSYNTHESIS, BILATERAL CLINICAL INFORMATION: Screening. Asymptomatic. The lifetime risk of breast cancer based on the Tyrer-Cuzick Model is 5%. COMPARISON: Mammography: 10/20/2021, 10/07/2020, 10/02/2019, 09/26/2018 TECHNIQUE: Digital breast tomosynthesis is performed in both the craniocaudal and mediolateral oblique views along with computer-aided detection (CAD). Synthesized 2D images are generated from the tomosynthesis. FINDINGS: There are scattered areas of fibroglandular density (ACR BI-RADS breast composition Category b). There are no significant masses, abnormal calcifications, or other abnormalities. No architectural abnormality or developing density or significant change from prior studies. MM/MM tomosynthesis screening BI IMPRESSION: No significant changes from prior studies. ASSESSMENT: BI-RADS 1: Negative RECOMMENDATION: Routine annual mammography screening. This patient's information was entered into a reminder system with a target due date for their next mammogram. Dictated By: Jimmy Aguilar MD Signed By: <Electronically signed by Jimmy Aguilar MD in OV> 11/04/22 1323 DD/ 1350 TD/TT: Front Office Specialist: MOORE [facility] External Provider IMG BI PROCEDURES Final Result * THINPREP PAP (04/15/2021 9:30 AM EDT) Clinical Information: [facility] COMMENT SEE COMMENT [facility] Comment: EXPLANATORY NOTE: The Pap is a screening test for cervical cancer. It is not a diagnostic test and is subject to false negative and false positive results. It is most reliable when a satisfactory sample, regularly obtained, is submitted with relevant clinical findings and history, and when the Pap result is evaluated along with historic and current clinical information. Necktie Maker : SEE COMMENT [facility] Comment: RMM, CT(ASCP) CT screening location: [place] [address] Interpretation/R esult: Negative for intraepithelial lesion or malignancy. [facility] LMP: NONE GIVEN [facility] Prev. BX: NONE GIVEN [facility] Prev. PAP: 03/2016 NIL/NEG [facility] SOURCE: None given [facility] Statement Of Adequacy: SEE COMMENT [facility] Comment: Satisfactory for evaluation. Endocervical/transformation zone component absent. 04/15/2021 9:30 AM EDT Carrie WILL LAB PATHOLOGY ORDERABLES Final Result Performing Organization Address [facility] Phone Number [facility] [place] [address], * HPV mRNA E6/E7 (04/15/2021 9:30 AM EDT) [facility] HPV nRNA E6/E7 Not Detected Not Detected [facility] Comment: Methodology: Analyst Microbiology Lab-Mediated Amplification This assay detects E6/E7 viral messenger RNA (mRNA) from 14 high-risk HPV types (16,18,31,33,35,39,45,51,52,56,58,59,66,68). The analytical performance characteristics of this assay have been determined by [employer]. The modifications have not been cleared or approved by the FDA. This assay has been validated pursuant to the CLIA regulations and is used for clinical purposes. For additional information, please refer to http://education.[employer].BakedCode/faq/HNN563i8 (This link if provided for information/ educational purposes only.) 04/15/2021 9:30 AM EDT Carrie WILL LAB BLOOD ORDERABLES Inez l Result Performing Organization Address [facility] Co de Phone Number [facility] [place] [address], * (ABNORMAL) LIPID PANEL, STANDARD (07/16/2020 9:20 AM EST) Chol/HDLC Ratio 3.4 <5.0 (calc) [facility] Cholesterol, Total 171 <200 mg/dL [facility] HDL Cholesterol 51 > OR = 50 mg/dL [facility] LDL Cholesterol 93 mg/dL (calc) [facility] Comment: Reference range: <100 Desirable range <100 mg/dL for primary prevention; <70 mg/dL for patients with CHD or diabetic patients with > or = 2 CHD risk factors. LDL-C is now calculated using the Moriah calculation, which is a validated novel method providing better accuracy than the Friedewald equation in the estimation of LDL-C. Juancarlos CHAN et al. ZAKI. 2013;310(19): 5341-2269 (http://education.[employer].BakedCode/faq/PKT029) Non-HDL Cholesterol 120 <130 mg/dL (calc) [facility] Comment: For patients with diabetes plus 1 major ASCVD risk factor, treating to a non-HDL-C goal of <100 mg/dL (LDL-C of <70 mg/dL) is considered a therapeutic option. Triglycerides 170(H) <150 mg/dL [facility] 07/16/2020 9:20 AM EST Saroj Hodgson MD LAB BLOOD ORDERABLES Final Result [facility] [address] from Last 3 Months or Most Recently Relevant to Health Maintenance Insurance MEDICARE [facility] STANDARD Care Teams Editor Managing Newspaper Relationship Specialty Start Date End Date Saroj Hodgson MD [address] [place] [id number] PCP - General Internal Medicine 06/15/12
--- OUTSIDE RECORDS SUMMARY | 2025-04-25 14:30 | XMS_ITS | Encounter Summary ---
Author Organization [employer] [facility] Address [address] [place] [address] Care Team Providers Care Critical Care Specialist Name Role Phone Saroj Hodgson MD Primary Care Provider [phone] Encounter Details Date Type Department Care Team (Latest Contact Info) Description 06/11/2020 Abstract [facility] CONVERSIONS Dental, Provider, DDS Social History Tobacco Use Types Packs/Day Years Used Date Smoking Tobacco: Never Assessed Comments Unknown Sex and Gender Information Value Date Recorded Sex Assigned at Female 06/15/2022 10:22 AM EDT Legal Sex Female 10:22 AM EDT Gender Identity Female 06/15/2022 10:22 AM EDT Sexual Orientation Straight 06/15/2022 10 :22 AM EDT documented as of this encounter Plan of Treatment Upcoming Encounters Date Type Department Care Team ([facility] st Contact Info) Description 05/25/2025 10:30 AM EDT Clinical Support [facility] [address] [place] [address] 06/11/2025 10:45 AM EDT Office Visit [facility] [address] [place] [address] Saroj Hodgson MD [address] [place] [address] documented as of this encounter Visit Diagnoses Not on filedocumented in this encounter Care Teams Critical Care Specialist Relationship Specialty Start Date End Date Saroj Hodgson MD [address] [place] [address] PCP - General Internal Medicine 06/15/12 documented as of this encounter
--- OUTSIDE RECORDS SUMMARY | 2025-04-25 14:30 | XMS_ITS | Encounter Summary ---
Author Organization [employer] Address [address] [facility] [address] [place] [address] Care Team Providers Care Clinical Informatics Spec Name Role Phone Saroj Hodgson MD Primary Care Provider [phone] Encounter Details Date Type Department Care Team (Latest Contact Info) Description 04/24/2025 Travel Social History Tobacco Use Types Packs/Day Years [...] Upcoming Encounters Date Type Department Care Team ([facility] st Contact Info) Description 05/25/2025 10:30 AM EDT Clinical Support [facility] [address] [place] [address] 06/11/2025 10:45 AM EDT Office Visit [facility] [address] [place] [address] Saroj Hodgson MD [address] [place] [address] documented as of this encounter Visit Diagnoses Not on filedocumented in this encounter Additional Health Concerns Assessment Noted Time PHQ-9 Depression Total Score: 1 08/11/20 22 10:07 AM EST documented as of this encounter Care Teams Clinical Informatics Spec Relationship Specialty Start Date End Date Saroj Hodgson MD [address] [place] [address] PCP - General Internal Medicine 06/15/12 documented as of this encounter
--- OUTSIDE RECORDS SUMMARY | 2025-04-25 14:30 | XMS_ITS | Encounter Summary ---
Author Organization [employer] Address [address] [address] Care Team Providers Care Converting Operator Name Role Phone Saroj Hodgson MD Primary Care Provider [phone] Reason for Visit * Reason Onset Date Comments Nurse Triage 10/27/2023 Encounter Details Date Type Department Care Team ([facility] st Contact Info) Description 10/27/2023 Telephone [facility] [address] [place] [address] Saroj Hodgson MD [address] [place] [address] Nurse Triage Social History Tobacco Use Types Packs/Day Years Used Date Smoking Tobacco: Never Passive Smoke Exposure: Never Smokeless Tobacco: Never Depression Answer Date Recorded Patient Health Questionnaire-9 Score 1 08/11/2022 Housing Stability Answer Date Recorded What is your housing situation today? I have nicho davidson 07/06/[address] you li ve. Do you have problems with any of the following? None of the above 07/06/2023 Food Insecurity Answer Date Recorded Within the past 12 months, y ou worried that your food would run out before you got money to buy more: Never True 07/06/2023 Within the past 12 months,th e food you bought just didn't last and you didn't have enough money to get more: Never True Utilities Answer Date Recorded In the past 12 months, has t he electric, gas, oil or water company threatened to shut off services in your home? No 07/06/2023 Depression Answer Date Recorded Patient Health Questionnaire-2 Score 0 08/11/2022 Comments Unknown Sex and Gender Information Value Date Recorded Sex Assigned at Female 06/15/2022 10:22 AM EDT Legal Sex Female 10:22 AM EDT Gender Identity Female 06/15/2022 10:22 AM EDT Sexual Orientation Straight 06/15/2022 10 :22 AM EDT documented as of this encounter Miscellaneous Notes * Telephone Encounter - Estefania Chandler RN - 10/27/2023 12:22 PM EDT Triage call Pt reports symptoms of sore throat, cough, and asthma. Pt reports this has been for several days now and is worse at night. Pt believes the sore throat is from coughing so much. Neg for fever. Pt is using albuterol inhaler 4- 5x/day. Pt reports some shortness of breath during the day andhas to sit down and rest when this happens. Pt cough is productive with thick yellow sputum produced. Pt is advised to come to [facility] today to be seen by provider, no apts available in [facility]. PT agrees with disposition and home care reviewed. Pt will come to [facility]. Insurance is verified as active. Protocol Used: Asthma Attack (Adult) Protocol-Based Disposition: See in Office or Video Visit Today or Tomorrow Video visit not offered Positive Triage Question: * Mild asthma attack (e.g., no SOB at rest, mild SOB with walking, speaks normally in sentences, mild wheezing) and lasting > 24 hours on prescribed treatment * All higher-acuity triage questions were negative Care Advice Discussed: * Reassurance and Education - Mild Asthma Attack * Asthma Attack * Asthma Attack - Symptoms * Asthma Attack - Treatment - Quick-Relief Medicine * Asthma Attack - Treatment - Controller Medicine * Drink Plenty of Liquids and Use a Humidifier * Reasons To Call Back - An asthma attack is not better after 2 or 3 quick-relief treatments (such as albuterol by inhaleror nebulizer) 20 minutes apart. - Quick-relief asthma medicine (such as albuterol by inhaler or nebulizer) is needed more often than every 4 hours - Mild asthma symptoms not better after 24 hours - Mild wheezing or other asthma symptoms come and go for more than 3 days - You become worse * Telephone Encounter - Vernon Puentes - 10/27/2023 11:51 AM EDT Symptoms: Sore Throat, Cough, Asthma Attack - Caller Reports Outcome: Schedule an urgent appointment (within 1 hour) or talk to a nurse or provider soon Reason: Wheezing (high-pitched whistling sound) The caller accepted this outcome documented in this encounter Plan of Treatment Upcoming Encounters Date Type Department Care Team ([facility] st Contact Info) Description 05/25/2025 10:30 AM EDT Clinical Support [facility] [address] [place] [address] 06/11/2025 10:45 AM EDT Office Visit [facility] [address] [place] [address] Saroj Hodgson MD [address] [place] [address] documented as of this encounter Visit Diagnoses Not on filedocumented in this encounter Additional Health Concerns Assessment Noted Time PHQ-9 Depression Total Score: 1 08/11/20 22 10:07 AM EST documented as of this encounter Care Teams Converting Operator Relationship Specialty Start Date End Date Saroj Hodgson MD [address] [place] [address] PCP - General Internal Medicine 06/15/12 documented as of this encounter
--- OUTSIDE RECORDS SUMMARY | 2025-04-25 14:30 | XMS_ITS | Encounter Summary ---
Author Organization [employer] Address [address] [facility] [address] [place] [address] Care Team Providers Care Ecologist Technician Name Role Phone Saroj Hodgson MD Primary Care Provider [phone] Encounter Details Date Type Department Care Team (Latest Contact Info) Description 04/25/2025 Travel Social History Tobacco Use Types Packs/Day [...] AM EDT documented as of this encounter Functional Status * Over the [...] 9:58 AM Bret Adair [place] * Trouble falling or staying asleep, or sleeping too much Answer Date of Assessment Author Several days 04/25/2025 9:58 AM Bret Adair [place] * Feeling tired or having little energy Answer Date of Assessment Author Nearly every day 04/25/2025 9:58 AM Ramesh Adair [place] * Poor appetite or overeating Answer Date of Assessment Author Not at all 04/25/2025 9:58 AM Bret Adair [place] * Feeling bad about yourself - or that you are a failure or have let yourself or your family down Answer Date of Assessment Author Not at all 04/25/2025 9:58 AM EDBret Villalba [place] * Trouble concentrating on things, such as reading the newspaper or watching television Answer Date of Assessment Author Not at all 04/25/2025 9:58 AM Bret Adair MA * Moving or speaking so slowly [...] Garvin MA documented as of this encounter Plan of Treatment Upcoming Encounters Date Type Department Care Team (Late st Contact Info) Description 05/25/2025 10:30 AM EDT Clinical Support [facility] [address] [place] [address] 06/11/2025 10:45 AM EDT Office Visit [facility] [address] [place] [address] Saroj Hodgson MD [address] [place] [address] documented as of this encounter Visit Diagnoses Not on filedocumented in this encounter Additional Health Concerns Assessment Noted Time PHQ-9 Depression Total Score: 4 04/25/20 25 9:58 AM EDT documented as of this encounter Care Teams Ecologist Technician Relationship Specialty Start Date End Date Saroj Hodgson MD [address] [place] [address] PCP - General Internal Medicine 06/15/12 documented as of this encounter
[2025-04-25 14:32] LABS: Hematocrit 36.7 % (37.0-47.0); Hemoglobin 12.1 g/dl (12.0-16.0); Imm Gran Abs Auto 0.02 X10*3/uL (0.00-0.03); Imm Gran Pct Auto 0.2 % (0.0-0.4); Lymphocytes Absolute Auto 3.1 X10*3/uL (1.2-4.9); Mean Corpuscular HGB Conc 33.0 g/dl (31.0-35.0); Mean Corpuscular Hemoglobin 31.9 pg (27.0-33.0); Mean Corpuscular Volume 96.8 fL (80.0-98.0); NRBC Abs Auto 0.000 X10*3/uL (0.0-0.012); NRBC Pct Auto 0.0 /100WBC (0.0-0.2); Platelet Count 372 X10*3/uL (160-400); Red Blood Count 3.79 X10*6/uL (4.20-5.50); White Blood Count 8.8 X10*3/uL (4.8-10.8)
[2025-04-25 15:12] LABS: Alanine Aminotransferase 21 U/L (0-31); Albumin Level 4.4 g/dL (3.5-5.0); Alkaline Phosphatase 74 U/L (39-117); Anion Gap 12 (12-20); Aspartate Amino Transferase 26 U/L (5-31); Blood Urea Nitrogen 17 mg/dL (9-16); Calcium 9.4 mg/dL (8.4-10.2); Carbon Dioxide 27 mmol/L (22-29); Chloride 105 mmol/L (96-108); Cholesterol 185 mg/dL (<200); Estimated Glomerular Filt Rate > 60; HDL Cholesterol 52 mg/dL (>40); Magnesium 2.2 mg/dL (1.6-2.6); Potassium 4.1 mmol/L (3.3-5.1); Sodium 140 mmol/L (135-145); Total Protein 8.0 g/dL (6.5-8.0); Triglycerides 88 mg/dL (<150)
[2025-04-25 15:36] LABS: Folate 14.0 ng/mL (> or = 4.0); Vitamin B12 782 pg/mL (200-900)
== END 2025-04-25 11:23 | disposition home or self-care (01) ==
LOC: HO.CHCLDS 11:22
PROVIDERS: Visit Provider Internal Medicine
DX: I10 Essential (primary) hypertension (principal); R53.83 Other fatigue
CPT/HCPCS: 36415; 80053; 80061; 82607; 82746; 83735; 84443; 85025

== ENCOUNTER 2025-04-27 11:22 | Outpatient (REF) | payer MEDICAID, SELFPAY ==
--- NOTE | ~2025-04-27 | XR_ITS ---
EXAMINATION: XR SHOULDER, RIGHT CLINICAL INFORMATION: right shoulder pain COMPARISON: None available. TECHNIQUE: Three views of the right shoulder. FINDINGS: AC joint appears intact It is mildly widened probably from resection of distal clavicle. Minute marginal osteophytes are present in the inferior glenohumeral joint. There is no dislocation. 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 Minimal degenerative change in the glenohumeral joint. Electronically signed by: Alex Miranda MD 04/27/2025 01:09 PM EDT
--- NOTE | ~2025-04-27 | XR_ITS ---
EXAMINATION: XR SHOULDER, LEFT CLINICAL INFORMATION: left shoulder pain COMPARISON: None available. TECHNIQUE: Three views of the left shoulder. FINDINGS: There is mild elevation of distal clavicle with AC joint. There is mild degenerative change in the glenohumeral joint with small glenoid marginal osteophytes. Mild is identified. XR/XR shoulder LT min 2V IMPRESSION: Probable type II AC joint separation. Electronically signed by: Alex Miranda MD 04/27/2025 01:08 PM EDT
== END 2025-04-27 11:23 | disposition home or self-care (01) ==
LOC: HO.HHCX 11:22
PROVIDERS: PCP Internal Medicine; Visit Provider Internal Medicine
DX: M25.511 Pain in right shoulder (principal); M25.512 Pain in left shoulder
CPT/HCPCS: 73030

== ENCOUNTER → 2025-04-27 11:47 | Outpatient (BNV) | payer MEDICAID, SELFPAY | PROVIDERS: PCP Internal Medicine; Visit Provider Radiology Diagnostic Radiology | DX: M19.012 Primary osteoarthritis, left shoulder (principal); S43.51XA Sprain of right acromioclavicular joint, initial encounter | CPT/HCPCS: 73030 ==